=== PATIENT | male | born 1950 | race African-American/Black ===

== ENCOUNTER 2016-11-15 09:36 | Inpatient (IN) ==
[2016-11-15 11:10] LABS: URINE CULTURE NEEDED? NO; URINE MICRO REVIEW NEEDED? NO; URINE SOURCE CLEAN CATCH
[2016-11-15 11:15] LABS: BILIRUBIN URINE NEGATIVE (NEGATIVE); BLOOD URINE SMALL (NEGATIVE); COLOR YELLOW; GLUCOSE URINE NEGATIVE (NEGATIVE); LEUKOCYTES URINE NEGATIVE (NEGATIVE); NITRITE URINE NEGATIVE (NEGATIVE); PH URINE 7.5; PROTEIN URINE TRACE mg/dL (NEGATIVE); SP GRAVITY URINE 1.009; TURBIDITY URINE CLEAR (CLEAR); UR EPITHELIAL CELLS <10 /HPF (<10); URINE BACTERIA NEGATIVE /HPF; URINE RBC <10 /HPF (<10); URINE WBC <10 /HPF (<10); UROBILINOGEN URINE 2 mg/dL (NORMAL)
[2016-11-15 12:05] LABS: BASO% 0.9 % (0.0-0.8); EOS# 0.14 X1000 (0.0-0.7); HEMATOCRIT 31.8 % (42.0-52.0); HEMOGLOBIN 11.4 g/dL (14.0-18.0); LYMPH# 1.02 X1000 (1.2-3.4); MANUAL DIFF NEEDED? NO; MCH 31.6 PG (27-31); MCHC 35.8 g/dL (33-37); MCV 88.1 FL (81-99); MONO# 0.71 X1000 (0.11-0.59); MONO% 15.3 % (1.7-9.3); NEUT% 58.8 % (42.2-75.2); PLT 41 X1000 (130-400); RBC 3.61 XMIL (4.7-6.1)
[2016-11-15 12:10] LABS: INR 1.55; PROTIME 16.7 Seconds (9.2-11.7); PTT 32.5 Seconds (22.0-36.0)
[2016-11-15 12:19] LABS: AGAP 12; ALBUMIN 2.3 g/dL (3.5-5.0); ALKALINE PHOSPHATASE 217 U/L (32-122); BUN 9 mg/dL (8-22); CALCIUM 8.3 mg/dL (8.8-10.2); CHLORIDE 105 mmol/L (98-107); COSMO 277; GOT 57 U/L (10-34); GPT 33 U/L (10-44); POTASSIUM 4.1 mmol/L (3.5-5.1); SODIUM 138 mmol/L (136-145); TCO2 21 mmol/L (25-35); TOTAL PROTEIN 6.9 g/dL (6.3-8.3)
[2016-11-15] MEDS ORDERED: LASIX IV ONE (13:12)
[2016-11-15] MEDS ORDERED: NITROGLYCERIN ONE (13:59)
[2016-11-15] MEDS: NITROGLYCERIN TOP SCH ×2 (14:00→20:21)
[2016-11-15] MEDS ORDERED: ZOFRAN IV PRN (17:21)
[2016-11-15] MEDS ORDERED: LACTULOSE PO SCH (18:00)
[2016-11-15] MEDS ORDERED: APRESOLINE IV PRN (18:30)
[2016-11-15] MEDS ORDERED: VITAMIN K SUBQ ONE (18:30)
[2016-11-15] MEDS: LACTULOSE PO SCH (20:19)
[2016-11-15] MEDS: XIFAXAN PO SCH (20:21)
[2016-11-16] MEDS: NITROGLYCERIN TOP SCH ×2 (01:52→08:36)
[2016-11-16 05:13] LABS: HEMATOCRIT 28.1 % (42.0-52.0); HEMOGLOBIN 9.8 g/dL (14.0-18.0); MCH 31.3 PG (27-31); MCHC 34.9 g/dL (33-37); MCV 89.8 FL (81-99); PLT 42 X1000 (130-400); RBC 3.13 XMIL (4.7-6.1)
[2016-11-16 05:31] LABS: AGAP 11; ALBUMIN 2.1 g/dL (3.5-5.0); ALKALINE PHOSPHATASE 125 U/L (32-122); BUN 10 mg/dL (8-22); CALCIUM 9.4 mg/dL (8.8-10.2); CHLORIDE 106 mmol/L (98-107); COSMO 278; GOT 54 U/L (10-34); GPT 30 U/L (10-44); POTASSIUM 4.2 mmol/L (3.5-5.1); SODIUM 140 mmol/L (136-145); TCO2 23 mmol/L (25-35); TOTAL BILIRUBIN 6.01 mg/dL (0.20-1.00); TOTAL PROTEIN 6.1 g/dL (6.3-8.3)
[2016-11-16] MEDS ORDERED: NORCO-5 PO ONE (05:44)
[2016-11-16] MEDS: LACTULOSE PO SCH ×3 (06:11→21:36)
[2016-11-16] MEDS: SODIUM CHLORIDE 0.9% INJ SCH ×2 (08:36→21:37)
[2016-11-16] MEDS: PROTONIX IV SCH ×2 (08:36→21:37)
[2016-11-16] MEDS: XIFAXAN PO SCH ×2 (08:37→21:36)
[2016-11-16] MEDS: LASIX PO SCH (08:37)
[2016-11-16] MEDS: CENTRUM SILVER PO SCH (08:37)
[2016-11-16] MEDS: ALDACTONE PO SCH (08:37)
[2016-11-16] MEDS: ICAR-C PO SCH ×2 (08:37→21:36)
[2016-11-16] MEDS: VICON-C PO SCH (08:37)
[2016-11-16] MEDS ORDERED: IMDUR PO SCH (09:00)
[2016-11-16] MEDS ORDERED: IMDUR PO ONE (13:21)
[2016-11-16] MEDS ORDERED: VALIUM IV ONE (21:49)
[2016-11-17] MEDS ORDERED: NORCO-7.5 PO ONE (03:15)
[2016-11-17 06:54] LABS: AGAP 14; ALBUMIN 2.1 g/dL (3.5-5.0); ALKALINE PHOSPHATASE 116 U/L (32-122); BUN 15 mg/dL (8-22); CALCIUM 9.2 mg/dL (8.8-10.2); CHLORIDE 104 mmol/L (98-107); COSMO 282; GOT 52 U/L (10-34); GPT 32 U/L (10-44); POTASSIUM 4.3 mmol/L (3.5-5.1); SODIUM 139 mmol/L (136-145); TCO2 21 mmol/L (25-35); TOTAL BILIRUBIN 7.23 mg/dL (0.20-1.00); TOTAL PROTEIN 6.1 g/dL (6.3-8.3)
[2016-11-17 07:09] LABS: HEMATOCRIT 27.4 % (42.0-52.0); HEMOGLOBIN 9.5 g/dL (14.0-18.0); MCH 31.7 PG (27-31); MCHC 34.7 g/dL (33-37); MCV 91.3 FL (81-99); PLT 44 X1000 (130-400)
[2016-11-17] MEDS: SODIUM CHLORIDE 0.9% INJ SCH ×2 (07:41→18:47)
[2016-11-17] MEDS: PROTONIX IV SCH ×2 (07:41→18:47)
[2016-11-17] MEDS: LACTULOSE PO SCH ×3 (08:24→20:45)
[2016-11-17] MEDS: CENTRUM SILVER PO SCH (08:25)
[2016-11-17] MEDS: IMDUR PO SCH (08:25)
[2016-11-17] MEDS: ALDACTONE PO SCH (08:25)
[2016-11-17] MEDS: XIFAXAN PO SCH ×2 (08:25→20:45)
[2016-11-17] MEDS: LASIX PO SCH (08:26)
[2016-11-17] MEDS: ICAR-C PO SCH ×2 (08:38→20:45)
[2016-11-17] MEDS: VICON-C PO SCH (08:41)
[2016-11-18] MEDS: LACTULOSE PO SCH ×2 (06:11→14:27)
[2016-11-18] MEDS: PROTONIX IV SCH (06:16)
[2016-11-18 07:08] LABS: AGAP 10; ALBUMIN 2.1 g/dL (3.5-5.0); ALKALINE PHOSPHATASE 115 U/L (32-122); BUN 19 mg/dL (8-22); CALCIUM 9.4 mg/dL (8.8-10.2); CHLORIDE 103 mmol/L (98-107); COSMO 278; GOT 45 U/L (10-34); GPT 30 U/L (10-44); POTASSIUM 4.4 mmol/L (3.5-5.1); SODIUM 138 mmol/L (136-145); TCO2 25 mmol/L (25-35); TOTAL BILIRUBIN 7.44 mg/dL (0.20-1.00); TOTAL PROTEIN 6.1 g/dL (6.3-8.3)
[2016-11-18 07:09] LABS: BASO% 0.2 % (0.0-0.8); EOS# 0.29 X1000 (0.0-0.7); EOS% 2.4 % (0.0-10.0); HEMATOCRIT 26.9 % (42.0-52.0); HEMOGLOBIN 9.4 g/dL (14.0-18.0); IMM GRAN# 0.08 X1000 (0.0-0.04); IMM GRAN% 0.7 % (0.0-0.5); LYMPH# 1.41 X1000 (1.2-3.4); LYMPH% 11.7 % (20.5-51.1); MANUAL DIFF NEEDED? YES; MCHC 34.9 g/dL (33-37); MCV 88.8 FL (81-99); MONO# 2.63 X1000 (0.11-0.59); MONO% 21.8 % (1.7-9.3); NEUT% 63.2 % (42.2-75.2); PLT 50 X1000 (130-400); RBC 3.03 XMIL (4.7-6.1)
[2016-11-18 09:17] LABS: BANDS 2 % (0-1); EOS 4 % (1-10); HYPOCHROM 1+; LYMPHS 10 % (21-51); MONO 8 % (1-9)
[2016-11-18] MEDS: LASIX PO SCH (10:19)
[2016-11-18] MEDS: ALDACTONE PO SCH (10:19)
[2016-11-18] MEDS: VICON-C PO SCH (10:19)
[2016-11-18] MEDS: ICAR-C PO SCH (10:19)
[2016-11-18] MEDS: CENTRUM SILVER PO SCH (10:20)
[2016-11-18] MEDS: XIFAXAN PO SCH (10:20)
[2016-11-18] MEDS: IMDUR PO SCH (10:20)
[2016-11-18] MEDS ORDERED: BENADRYL LIQUID PO PRN (10:54)
[2016-11-18 12:57] VITALS: BP 172/81
== END 2016-11-18 14:40 | disposition home or self-care (01) ==
LOC: ED 09:36 → SUATTDRO 18:16 → 3S 18:16 → 4N 11-16 20:24
PROVIDERS: ATTEND Internal Medicine

== ENCOUNTER 2016-11-30 03:33 | Inpatient (IN) ==
--- NOTE | 2016-11-30 04:01 | PROVIDER DOCUMENTATION ---
HPI-General Adult - General Chief Complaint: Extremity Pain Stated Complaint: KNEE PAIN Time Seen by Provider: 11/30/16 03:49 Source: patient, other (friend) Allergies/Adverse Reactions: Patient Allergies Allergy/AdvReac Type Severity Reaction Status Date / Time influenza virus vaccine, Allergy RASH Verified 11/30/16 05:02 specific [Influenza Virus Vacc,Specific] Home Medications: Home Medication List Medication Instructions Recorded Confirmed Last Taken Type Allopurinol [Zyloprim] 100 mg PO QHS 01/22/12 11/30/16 11/29/16 History Isosorbide Mononitrate E.r. [Imdur] 30 mg PO DAILY #30 tablet 08/06/14 11/30/16 11/29/16 Rx Omeprazole [Prilosec] 20 mg PO DAILY@0700 12/28/14 11/30/16 11/29/16 History Spironolactone 100 mg PO DAILY 12/28/14 11/30/16 11/29/16 History Rifaximin [Xifaxan] 550 mg PO BID #60 tablet 02/18/15 11/30/16 11/29/16 Rx Vitamin B Complex [B Complex] 1 each PO DAILY #30 capsule 05/15/15 11/30/16 Rx Cyclobenzaprine [Flexeril] 10 mg PO TID PRN #30 tablet 09/13/16 11/30/16 Unknown Rx Meclizine HCl [Antivert] 25 mg PO BID PRN 11/15/16 11/30/16 Unknown History Furosemide [Lasix] 40 mg PO DAILY tablet 11/18/16 11/30/16 11/29/16 Rx Iron Carbonyl/Ascorbic Acid 1 each PO BID tablet 11/18/16 11/30/16 11/29/16 Rx [Icar-C] Lactulose 45 ml PO 0700,1400,2100 udc 11/18/16 11/30/16 11/29/16 Rx Multivitamins/Minerals [Centrum 1 each PO DAILY tablet 11/18/16 11/30/16 Rx Silver] - History of Present Illness -Gen Adult Nature of Presenting Problems: pt states he woke up this morning with severe left lower leg pain. He has chronic lower leg swelling but it is more swollen than usual. He is also shivering Review of Systems - Adult - REVIEW OF SYSTEMS - ADULT Constitutional: reports: chills. denies: fever Eyes: denies: discharge Ears, Nose, Mouth & Throat: denies: ear pain, sinus problem, throat pain Cardiovascular: denies: chest pain, palpitations Respiratory: denies: cough, shortness of breath Gastrointestinal: denies: abdominal pain, diarrhea, nausea, vomiting Genitourinary: denies: dysuria, flank pain Integumentary: reports: see HPI Neurological: denies: headache/migraines, numbness, paresthesia Psychiatric: reports: no symptoms reported Endocrine: reports: no symptoms reported Hematologic/Lymphatic: reports: no symptoms reported Allergic/Immunologic: reports: no symptoms reported All Other Systems: Reviewed and Negative Past History - Adult - PAST MEDICAL HISTORY-ADULT Review of Records: reports: Old Records Reviewed, Nursing Assessment Review, Medications Reviewed, Social history reviewed & non-contributory. Major Childhood Illnesses: reports: denies history Cardiovascular: reports: CHF, HTN, hyperlipidemia Respiratory: reports: denies history Gastrointestinal: reports: GI bleed (mild in past), liver disease (cirrhosis) Obstetrical/Gynecological: reports: denies history Genitourinary: reports: denies history Musculoskeletal: reports: arthritis (gout) Neurological: reports: denies history Psychiatric: reports: anxiety Endocrine/Immune: reports: denies history Other Conditions: reports: denies history - PRIOR SURGERIES/PROCEDURES Surgical/Procedure History: reports: orthopedic (extremity) (right wrist) - IMMUNIZATION STATUS Childhood Immunizations: See Nurse Assessment Flu Vaccine: See Nurse Assessment - FAMILY HISTORY Family History: reviewed, not pertinent Physical Exam-General - PHYSICAL EXAM-ADULT Initial Vital Signs Reviewed: Yes - CONSTITUTIONAL General Appearance: mild distress, slow to respond - EYES Eyes: PERRL/EOMI. negative: scleral icterus - HEAD, EARS, NOSE, MOUTH & THROAT HENMT: normocephalic/atraumatic - NECK Neck: non-tender, full range of motion, supple, normal inspection - RESPIRATORY Respiratory: chest non-tender, lungs clear, normal breath sounds, no pleuratic chest pain, no respiratory distress, no accessory muscle use - CARDIOVASCULAR Cardiovascular: no murmur, tachycardia. negative: no edema (pt has bilateral edema ov lower legs with right much more so, and it is slightly warmer and moderately tender without obvious erythema) - GASTROINTESTINAL (ABDOMEN) Abdominal Exam: normal bowel sounds, non tender, soft, no organomegaly, no pulsatile mass - MUSCULOSKELETAL Back Exam: normal inspection, no CVA tenderness, no vertebral tenderness Extremity: no calf tenderness. 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 negative: normal mood/affect Progress - PLAN OF CARE/RESULTS Progress/Plan/Lab Results: Vital Signs - 8 hr 11/30/16 03:46 Temperature 98.0 F Pulse Rate 121 H Respiratory Rate 22 Blood Pressure 100/59 O2 Sat by Pulse Oximetry 98 Orders Category Date Time Status CHEST-PORTABLE [RAD] Stat Exams 11/30/16 03:56 Ordered AMMONIA [CHEM] Stat Lab 11/30/16 03:55 Uncollected BLOOD CULTURE [BLDCUL] Stat Lab 11/30/16 03:56 Uncollected BNP [PRO B-NATRIURETIC PEPTIDE] Stat Lab 11/30/16 03:57 Uncollected CBC WITH ELECTRONIC DIFF [HEME] Stat Lab 11/30/16 03:54 Uncollected CMP [COMPREHENSIVE METABOLIC PANEL] [CHEM] Stat Lab 11/30/16 03:54 Uncollected Ddimer [D-DIMER] [CHEM] Stat Lab 11/30/16 03:54 Uncollected LACTATE, PLASMA [CHEM] Stat Lab 11/30/16 03:55 Uncollected MAGNESIUM [CHEM] Stat Lab 11/30/16 03:57 Uncollected PROTIME WITH INR [COAG] Stat Lab 11/30/16 03:56 Uncollected PTT [COAG] Stat Lab 11/30/16 03:56 Uncollected TROPONIN T Stat Lab 11/30/16 03:56 Uncollected EKG [EKG] Stat Ther 11/30/16 03:55 Ordered EKG [EKG] Stat Ther 11/30/16 03:55 Ordered Result Diagrams: 11/30/16 04:08 11/30/16 04:08 - EKG 1 Time of EKG reading by physician:: 04:42 EKG Interpretation (*Must complete 3 of following elements*): Abnormal Rate: 122 Rhythm: acclerated junctional QRS: normal ST Wave: normal - XRAY 1 XRAY Study: Chest Impression: Normal Departure - Departure Date of Disposition Decision: 11/30/16 Time of Disposition Decision: 05:18 DIAGNOSIS: Hyperbilirubinemia, Hyperammonemia, Left leg cellulitis Disposition: ADMITTED INPATIENT 09 Certified Medical Emergency: Emergent Condition: Fair Referrals and Follow-Ups: Gary Spears [Primary Care Provider] - - Critical Care Note This patient required my direct & personal management of CC.: Yes Total Time (mins): 90 Critical Care Statement: This patient required my direct personal management to treat or rule out processes, the absence of which, could potentiallly result in sudden, clinically significant life or limb threatening deterioration. Attestation - Physician/ VEDA Attestation Patient care was provided by Advanced Practice Provider:: No The physician spent face to face time with patient:: Yes Advanced Practice Provider documentation review:: Supervising physician onsite and consulted in the evaluation and care of this patient. The physician did have a face to face encounter with the patient.
[2016-11-30] MEDS ORDERED: NS 1,000 ML IV ONE ×2 (04:40→05:26)
[2016-11-30] MEDS ORDERED: OFIRMEV 1000 MG/ISOTONIC SOLN 1,000 MG/100 ML BOTTLE IV ONE (04:40)
[2016-11-30] MEDS ORDERED: ROCEPHIN 1 GM in NS 50 ML IV ONE (04:40)
[2016-11-30] MEDS ORDERED: VANCOMYCIN 1 GM/NS 1 GM/250 ML IVPB IV ONE (04:40)
[2016-11-30 04:50] LABS: INR 1.43; PROTIME 15.4 Seconds (9.2-11.7); PTT 26.8 Seconds (22.0-36.0)
[2016-11-30 04:52] LABS: BASO% 0.1 % (0.0-0.8); EOS# 0.13 X1000 (0.0-0.7); EOS% 1.5 % (0.0-10.0); HEMATOCRIT 32.6 % (42.0-52.0); HEMOGLOBIN 11.4 g/dL (14.0-18.0); LYMPH# 1.21 X1000 (1.2-3.4); LYMPH% 13.9 % (20.5-51.1); MANUAL DIFF NEEDED? NO; MCH 31.4 PG (27-31); MCV 89.8 FL (81-99); MONO# 0.53 X1000 (0.11-0.59); MONO% 6.1 % (1.7-9.3); NEUT% 78.4 % (42.2-75.2); PLT 58 X1000 (130-400); RBC 3.63 XMIL (4.7-6.1)
[2016-11-30 04:57] LABS: URINE MICRO REVIEW NEEDED? NO; URINE SOURCE CATH
[2016-11-30 05:00] LABS: BILIRUBIN URINE NEGATIVE (NEGATIVE); BLOOD URINE TRACE (NEGATIVE); COLOR YELLOW; GLUCOSE URINE NEGATIVE (NEGATIVE); LEUKOCYTES URINE SMALL (NEGATIVE); NITRITE URINE NEGATIVE (NEGATIVE); PROTEIN URINE TRACE mg/dL (NEGATIVE); SP GRAVITY URINE 1.019; TURBIDITY URINE CLEAR (CLEAR); UROBILINOGEN URINE 4 mg/dL (NORMAL)
[2016-11-30 05:02] LABS: UR EPITHELIAL CELLS <10 /HPF (<10); URINE BACTERIA NEGATIVE /HPF; URINE CULTURE NEEDED? YES; URINE RBC 20-40 /HPF (<10)
[2016-11-30 05:08] LABS: AGAP 19; ALBUMIN 2.4 g/dL (3.5-5.0); ALKALINE PHOSPHATASE 184 U/L (32-122); BUN 13 mg/dL (8-22); CALCIUM 8.9 mg/dL (8.8-10.2); CHLORIDE 100 mmol/L (98-107); COSMO 279; GOT 54 U/L (10-34); GPT 32 U/L (10-44); MAGNESIUM 1.5 mg/dL (1.5-2.7); POTASSIUM 3.9 mmol/L (3.5-5.1); SODIUM 139 mmol/L (136-145); TCO2 20 mmol/L (25-35); TOTAL BILIRUBIN 6.51 mg/dL (0.20-1.00); TOTAL PROTEIN 7.3 g/dL (6.3-8.3)
[2016-11-30] MEDS ORDERED: NS 500 ML IV ONE (05:42)
[2016-11-30] MEDS ORDERED: MAGNESIUM SULFATE 1 GM/D5W 1 GM/100 ML IVPB IV ONE (06:15)
--- NOTE | 2016-11-30 06:56 | EKG Report ---
Test Performed on : 11/30/2016 04:43:20 AM Test Reason : EDEMA Blood Pressure : / mmHG Vent. Rate : 127 BPM Atrial Rate : 067 BPM P-R Int : 000 ms QRS Dur : 084 ms QT Int : 358 ms P-R-T Axes : 000 027 069 degrees QTc Int : 520 ms Accelerated Junctional rhythm. Abnormal ECG When compared with ECG of 15-NOV-2016 09:46, Junctional rhythm. has replaced Sinus rhythm. Vent. rate has increased BY 45 BPM Unconfirmed Result
--- NOTE | 2016-11-30 07:08 | Diag Imaging Result Doc PS360 ---
EXAM: CHEST-PORTABLE HISTORY: leg swelling TECHNIQUE: AP portable at 0415 COMMENT: There is atelectasis in the right middle and lower lobes. The inspiration is suboptimal. The inspiration is actually slightly better than that of 11/15/2016. IMPRESSION: Atelectasis. Electronically signed by Jero Golden 11/30/2016 7:06 AM
--- NOTE | 2016-11-30 07:39 | HISTORY AND PHYSICAL ---
REASON FOR ADMISSION: A 1-day history of left lower extremity pain and swelling. HISTORY OF PRESENT ILLNESS: Mr. Gauri Castillo is a 66-year-old male with a past medical history of cirrhosis, Child's class C, gout, hyperlipidemia, hypertension, reflux disease. He was last admitted here 2 weeks ago for hepatic encephalopathy. He had been doing well up until about late last night when he started noticing that his left lower extremity was starting to swell and developed simultaneous pain. I am unable to get any meaningful history from him because he is extremely lethargic at this point in time but the little that I was able to get, he tells me he did not hurt his foot nor did he ingest seafood. His friend and sister are at bedside. Both of them concur with him. As a matter of fact, this afternoon, he was up walking around without any limitations. They believe that this happened suddenly overnight. The patient admits to having fever and chills. No diarrhea. No abdominal pain. No genitourinary complaints per the patient. No cardiorespiratory complaints. REVIEW OF SYSTEMS: Limited because the patient is extremely lethargic and sleepy. I had on multiple occasions tried to wake him up. The history obtained was very spotty at best. ALLERGIES: Flu vaccine. MEDICATIONS: He is on allopurinol 100 mg at bedtime, Flexeril 100 mg 3 times a day, Lasix 40 mg daily, Icar-C 1 b.i.d., Imdur 30 mg a day, lactulose 45 mL 4 times a day, meclizine 25 mg b.i.d. p.r.n., multivitamin tablets once a day, omeprazole 20 mg daily, Xifaxan 550 mg b.i.d., spironolactone 100 mg daily, vitamin B complex one daily. PRIMARY CARE PHYSICIAN: Dr. Gary Spears at the [facility] in [place], [place]. SOCIAL HISTORY: He has a 50 pack-year history of smoking per old records and 40 years of alcohol, quit 3 years ago. FAMILY HISTORY: Notable for strokes and colon cancer in 1st degree relatives. SURGICAL HISTORY: Could not be obtained nor is it documented in the chart. LABORATORY WORK: White count 8000, hemoglobin and hematocrit 11 and 32, platelets 58,000 with 78% neutrophils. BUN 13, creatinine 1.3, anion gap 19, bicarb 20, glucose 131, magnesium 1.8. Bilirubin 6.5, AST 54, ALT 32, alkaline phosphatase 184, ammonia 342, lactate 6.4, albumin 2.4. ProBNP is 17. PT 15, INR 1.4, D-dimer 8. Urinalysis shows trace protein, trace ketones, small leukocytes, 10-20 WBCs, 20-40 RBCs, and no bacteria noted. Chest x-ray somewhat rotated but shows slightly increased vascular markings. PHYSICAL EXAMINATION: GENERAL: Elderly, man who appears older than stated age. VITAL SIGNS: Heart rate 102, respirations 20, blood pressure 176/85, 95% on room air. HEENT: Head is normocephalic, atraumatic. Eyes: GARETH, EOMI. He is icteric and pale. ENT and oropharyngeal exam is grossly normal. Some cyanosis noted. CHEST: Clear to auscultation with good air entry in both lung goldstein. CARDIOVASCULAR: First and second heart sounds heard. No gallops. A 3/6 ejection systolic murmur heard. Rhythm is regular. ABDOMEN: Distended, soft. No focal areas of tenderness. Bowel sounds are hypoactive. No mass or organomegaly appreciated. RECTAL: Examination is deferred. EXTREMITIES: Patient has 2+ pitting edema on the right leg and 3+ on the left side. The skin there is shiny and hot. I cannot appreciate any erythema, although accounting for the degree of the patient's melanin, it is possible that there is an area of hyperpigmentation noted on the patient's leg which could represent erythema. Pulses are 1+, slightly diminished. He has good capillary refill. The pulses distally are regular and symmetrical. No clubbing, no peripheral cyanosis. NEUROLOGICAL: The patient is oriented only to person and place. No focal deficits appreciated. Patient could not raise his arms to see if there was any asterixis. SKIN: See above. MUSCULOSKELETAL: Grossly normal. ASSESSMENT: 1. Sepsis secondary to left lower extremity cellulitis. 2. Probable early onset encephalopathy. 3. Gout. 4. Hypertension. 5. Anemia of chronic inflammation. 6. Acute kidney injury. PLAN: At this time, the patient will be hydrated according to our sepsis protocol and has already been given vancomycin and Rocephin. Since patient has not been exposed to seafood nor to the best of our knowledge, has he wandered in any brackish or water which may contain vibrio vulnificus which is a pathogen, this subgroup of patients are very prone to being affected with cellulitis. We will treat this patient pretty much as if he has a typical MRSA strep cellulitis. Also, he appears to be slightly encephalopathic. This will also need to be treated. We will continue with Xifaxan and lactulose. His ammonia level is elevated but there is no direct correlation with degree of encephalopathy and pneumonia. Also, we should not be blind-sided by the fact that this patient may still have SBP. If he does not get better despite our current regimen, a diagnostic paracentesis may need to be entertained. A venous Doppler study will be done to rule out the possibility of coexisting DVT, this despite his INR being 1.5. The patients with suppressed INR still prone to having DVTs since the liver is the organ responsible for manufacturing protein C, S, and antithrombin 3. The patient could be deficient in this. Repeat lactate in 2 hours. The patient will be admitted to the ICU. TOTAL CRITICAL TIME: Will be estimated to be 42 minutes. cc: Gary Gonzalez MD
[2016-11-30] MEDS ORDERED: ZOFRAN IV PRN (08:13)
[2016-11-30] MEDS ORDERED: TYLENOL PO PRN (08:13)
--- NOTE | 2016-11-30 08:37 | Diag Imaging Result Doc PS360 ---
ABDOMEN FLAT/UPRIGHT - 11/30/2016 INDICATION: cirrhosis sepsis TECHNIQUE: Two views COMPARISON: 03/20/2012 FINDINGS: Portable technique was used in detail is very poor. There is probably some constipation at the hepatic and splenic flexures of the colon. No small bowel obstruction. No definite free air. IMPRESSION: Mild constipation. Electronically signed by Js Ybarra 11/30/2016 8:34 AM
[2016-11-30] MEDS: PATIENT'S OWN MED PO SCH (09:00)
[2016-11-30 11:07] LABS: BASO% 0.1 % (0.0-0.8); EOS# 0.03 X1000 (0.0-0.7); EOS% 0.2 % (0.0-10.0); HEMATOCRIT 29.3 % (42.0-52.0); HEMOGLOBIN 10.2 g/dL (14.0-18.0); IMM GRAN# 0.08 X1000 (0.0-0.04); IMM GRAN% 0.4 % (0.0-0.5); LYMPH% 3.4 % (20.5-51.1); MANUAL DIFF NEEDED? NO; MCH 31.6 PG (27-31); MCHC 34.8 g/dL (33-37); MCV 90.7 FL (81-99); MONO% 8.4 % (1.7-9.3); NEUT% 87.5 % (42.2-75.2); PLT 43 X1000 (130-400); RBC 3.23 XMIL (4.7-6.1)
[2016-11-30 11:36] LABS: AGAP 14; ALKALINE PHOSPHATASE 140 U/L (32-122); BUN 15 mg/dL (8-22); CALCIUM 8.3 mg/dL (8.8-10.2); CHLORIDE 105 mmol/L (98-107); COSMO 278; GOT 50 U/L (10-34); GPT 27 U/L (10-44); POTASSIUM 3.6 mmol/L (3.5-5.1); SODIUM 138 mmol/L (136-145); TCO2 19 mmol/L (25-35); TOTAL BILIRUBIN 5.75 mg/dL (0.20-1.00); TOTAL PROTEIN 6.1 g/dL (6.3-8.3)
[2016-11-30 11:41] LABS: INR 1.54; PROTIME 16.6 Seconds (9.2-11.7); PTT 31.8 Seconds (22.0-36.0)
[2016-11-30 11:43] LABS: CK PROFILE 471 U/L (24-204)
[2016-11-30] MEDS: ICAR-C PO SCH ×2 (12:00→20:08)
[2016-11-30] MEDS: NS 1,000 ML IV SCH ×3 (12:00→23:25)
[2016-11-30] MEDS: XIFAXAN PO SCH ×2 (12:00→20:08)
[2016-11-30] MEDS: CENTRUM SILVER PO SCH (12:00)
[2016-11-30] MEDS: IMDUR PO SCH (12:00)
--- NOTE | 2016-11-30 12:03 | SEPSIS: TISSUE PERFUSION ASSMT ---
Sepsis: Tissue Perfusion Assmt - Physical Exam Assessment Date: 11/30/16 Time Assessment Initialized: 12:00 Vital Signs: Last Vital Signs Temp 100.7 F H 11/30/16 06:14 Pulse 86 11/30/16 11:01 Resp 16 11/30/16 11:01 BP 148/70 11/30/16 11:01 Pulse Ox 97 11/30/16 11:01 Lung Sounds:: lungs clear Heart Sounds:: Regular Capillary Refill Time: Less Than 2 Seconds Peripheral Pulse Evaluation:: radial (R): 2+, radial (L): 2+, dorsalis-pedis (R) : 1+, dorsalis-pedis (L): 1+ Skin Exam:: pink - Impression Impression:: Tissue Perfusion Adequate - Plan Plan:: See Orders
[2016-11-30] MEDS: LACTULOSE PO SCH ×3 (12:13→20:07)
[2016-11-30] MEDS ORDERED: NS 1,000 ML ONE (12:15)
[2016-11-30] MEDS: OXY IR PO PRN ×2 (15:46→20:58)
[2016-11-30] MEDS: LOVENOX SUBQ SCH (18:12)
[2016-11-30] MEDS: KEFZOL 2 GM/D5W 2 GM/50 ML IVPB IV SCH (18:30)
[2016-11-30] MEDS: LOTRIMIN 1% CREAM TOP SCH (20:08)
--- NOTE | 2016-11-30 20:30 | CONSULTATION ---
DATE OF CONSULTATION: 11/30/2016 CONCLUSION: The patient has cellulitis of both legs. It is more prominent in the left leg. He is predisposed to this by having chronic edema in his legs, which most likely is due to the fact that he has cirrhosis of the liver. In addition, he has tinea pedis, which may serve as a portal for bacteria to invade from between his toes into his legs and cause cellulitis. RECOMMENDATIONS: I have requested that the nurse elevate the foot of the bed as much as possible. I have also ordered to place the patient on IV Ancef and to put Lotrimin cream between the toes of both feet every 12 hours. Long-term goals would be for the patient to lose weight and stop drinking. PRESENT ILLNESS: The patient has been having leg edema. It has gotten worse in the past week or 2 and has been associated with fever. He does not remember injuring either leg. His laboratory studies thus far show a CBC with a white count of 17,900, hemoglobin 10.2, and platelet count 43,000. Creatinine is 1.3. GFR is greater than 60. Bilirubin is 5.75. Pneumonias 342. Urinalysis showed white cells, but no bacteria. Chest x-ray has atelectatic changes. X-ray of the abdomen shows constipation. Blood and urine cultures are pending. PHYSICAL EXAMINATION: Eyes and ears: Patient has decreased hearing and vision. Neck: No stiffness. Respiratory: No cough or shortness of breath. GI: No nausea, vomiting, or diarrhea. : No dysuria or flank pain. Bones, joints, muscles: The patient has swelling in both legs and there is some erythema as well in the left leg. Endocrine: Patient denies having diabetes or thyroid disease. Neurologic: No seizures. No paresis. Integument : No rashes. PREVIOUS HOSPITALIZATIONS AND OPERATIONS: He has been admitted before for liver failure due to cirrhosis of the liver from alcoholism. He has also been admitted with leg edema. MEDICAL DISEASES: Positive for cirrhosis of the liver and hypertension. INFECTIOUS DISEASE HISTORY: Negative for pneumonia and UTI. FAMILY HISTORY: Positive for gout, hypertension, myocardial infarction and cancer. SOCIAL HISTORY: [place] He is [place]. He lives alone. He does not have any pets. He does not smoke cigarettes or abuse drugs. He is a heavy alcohol consumer. ALLERGIES: Influenza virus vaccine. HOME MEDICATIONS: Vitamin B, spironolactone, rifaximin, omeprazole, multivitamin, Antivert, lactulose, Isordil, furosemide, Flexeril and allopurinol. PHYSICAL EXAMINATION: Vital Signs: Temperature is 98 degrees, pulse 89, respirations 24, blood pressure 133/78. Patient is 5 feet 9 inches tall, weighs 198 pounds. General: This is an ill- appearing, elderly male. He is in no acute distress. Head, eyes, ears, nose, and throat: He has decreased hearing and vision. He generally had good oral hygiene. Neck: No meningismus. Thorax: No increased AP diameter. Lungs: Clear to auscultation. Cardiovascular: Regular heart rate. Extremities: Legs, bilateral edema, left leg greater than the right leg. The left leg is more edematous than the right leg. The left leg also is erythematous. Between the toes of his feet, the patient has scaling skin. Neurologic: Patient is awake. He can move his extremities. There is no tremor. His sensation is intact to touch. His memory as regarding his medical history is decreased. Thank you for the consult. cc: Ramses Castillo MD MTDD
[2016-12-01] MEDS: KEFZOL 2 GM/D5W 2 GM/50 ML IVPB IV SCH ×2 (01:06→10:07)
[2016-12-01 05:57] LABS: INR 1.74; PROTIME 18.9 Seconds (9.2-11.7)
[2016-12-01 06:12] LABS: AGAP 12; ALKALINE PHOSPHATASE 97 U/L (32-122); BUN 24 mg/dL (8-22); CALCIUM 7.9 mg/dL (8.8-10.2); CHLORIDE 106 mmol/L (98-107); COSMO 282; GOT 56 U/L (10-34); GPT 28 U/L (10-44); POTASSIUM 3.8 mmol/L (3.5-5.1); SODIUM 139 mmol/L (136-145); TCO2 21 mmol/L (25-35); TOTAL BILIRUBIN 9.15 mg/dL (0.20-1.00); TOTAL PROTEIN 5.9 g/dL (6.3-8.3)
[2016-12-01] MEDS: LACTULOSE PO SCH ×4 (06:22→20:04)
[2016-12-01 07:11] LABS: BASO% 0.2 % (0.0-0.8); EOS# 0.27 X1000 (0.0-0.7); EOS% 1.5 % (0.0-10.0); HEMATOCRIT 27.7 % (42.0-52.0); HEMOGLOBIN 9.7 g/dL (14.0-18.0); IMM GRAN# 0.06 X1000 (0.0-0.04); IMM GRAN% 0.3 % (0.0-0.5); LYMPH# 1.41 X1000 (1.2-3.4); LYMPH% 7.9 % (20.5-51.1); MANUAL DIFF NEEDED? YES; MCH 31.4 PG (27-31); MCV 89.6 FL (81-99); MONO# 2.43 X1000 (0.11-0.59); MONO% 13.7 % (1.7-9.3); NEUT% 76.4 % (42.2-75.2); PLT 40 X1000 (130-400); RBC 3.09 XMIL (4.7-6.1)
[2016-12-01 07:37] LABS: BANDS 6 % (0-1); HYPOCHROM 1+; LYMPHS 6 % (21-51); MONO 2 % (1-9)
--- NOTE | 2016-12-01 07:40 | Diag Imaging Result Doc PS360 ---
CHEST-1 VIEW - 12/01/2016 INDICATION: cirrhosis sepsis TECHNIQUE: COMPARISON: 11/30/2016 FINDINGS: Stable low lung volumes. Stable trace right basilar atelectasis. No focal infiltrates, pneumothorax, or pleural effusion. IMPRESSION: No change from prior. Electronically signed by Js Ybarra 12/01/2016 7:37 AM
[2016-12-01] MEDS: NS 1,000 ML IV SCH ×3 (08:10→16:35)
[2016-12-01] MEDS: ICAR-C PO SCH ×3 (08:10→20:03)
[2016-12-01] MEDS: XIFAXAN PO SCH ×3 (08:11→20:04)
[2016-12-01] MEDS: IMDUR PO SCH (08:11)
[2016-12-01] MEDS: LOTRIMIN 1% CREAM TOP SCH ×2 (08:11→22:00)
[2016-12-01] MEDS: LASIX PO SCH (08:11)
[2016-12-01] MEDS: ALDACTONE PO SCH (08:11)
[2016-12-01] MEDS: CENTRUM SILVER PO SCH (08:11)
[2016-12-01] MEDS: PATIENT'S OWN MED PO SCH (08:12)
--- NOTE | 2016-12-01 08:22 | PROGRESS NOTE ---
DATE: 12/01/2016 SUBJECTIVE: The patient reports feeling fine. They think that he is more awake and alert compared with yesterday. No fever or chills reported. OBJECTIVE: Vital Signs: Temperature 97.3 degrees, heart rate 90, respiratory rate 19, blood pressure 160/78, O2 saturation 98% on room air. General: This is a chronically ill-looking, 66- year-old, male, lying in bed in no acute distress. HEENT: Head is normocephalic, atraumatic. Anicteric sclerae. Pale conjunctivae. Mucous membranes moist. Neck: Supple. No JVD noted. No carotid bruits. No lymphadenopathy. No thyromegaly. Cardiovascular: S1, S2 heard. No murmurs, gallops, or rubs. Regular rate and rhythm. There is 3/6 ejection systolic murmur heard. Respiratory: Clear bilaterally to auscultation. No work of breathing or use of accessory muscles. Abdomen: Soft, nondistended, nontender to palpation. No signs of peritoneal irritation. Extremities: There is 2+ pitting edema in the right leg, and 3+ on the left side. Both are still warmer with mild erythema noted. There are also signs of chronic venous insufficiency. As per patient, he reports that definitely is more swollen and more hot. Neurological: The patient is definitely more oriented and awake. Moves 4 extremities. LABORATORY DATA: White cell count 17.75, hemoglobin 9.7, hematocrit 27.7, platelets 40,000. BMP shows creatinine 1.3. Total bilirubin 9.5, albumin 2.0. ASSESSMENT AND PLAN: 1. Bilateral lower extremity cellulitis. The white cell count is still high. Dr. Castillo from Infectious Disease was consulted. He has placed this patient on Ancef. At this point, we are going to follow his recommendations. Blood pressure is okay. The patient is on room air. We are going to continue with the same management. 2. Hepatic encephalopathy. The patient, at admission, was very confused. Apparently, as per family, he was doing like this for at least the last 4 to 6 days. The patient has ammonia check at admission; it was 342; today, it is 88. The patient has been started on rifaximin and lactulose. Clinically, he is doing much better. Will continue with the same management. 3. Thrombocytopenia. Of course, related to alcoholic liver disease. At this time, there are no signs of bleeding. We are going to continue checking CBC daily. 4. Hypertension. Blood pressures so far is well controlled. The systolic blood pressure is between 140s and 160s, just one reading. Will continue with the same management right now. 5. Anemia of chronic disease. The hemoglobin is 9.7. This is stable. Will continue checking CBC daily. 6. Acute kidney injury. Creatinine is 1.3, which is unchanged from yesterday. Glomerular filtration rate is greater than 60. Will continue monitoring renal function. 7. Alcoholic liver disease. On this patient, we know that he has advanced liver disease with Child-Grossman score of 12. He had a 1-year mortality of 55%. He is currently receiving Lasix and spironolactone. At this point, will continue with the same management. cc: Joel Garcia MD
[2016-12-01] MEDS: OXY IR PO PRN ×2 (11:04→18:20)
--- NOTE | 2016-12-01 14:24 | Extremity Venous Study ---
PROCEDURE NAME: Venous U/S Left Leg - 11/30/2016 LEFT LOWER EXTREMITY VENOUS DUPLEX STUDY: REFERRING PHYSICIAN: Dr. Rader. READING PHYSICIAN: Gilbert Padgett MD. SEWING TECHNIQUES DEMONSTRATOR: Win. INDICATION: Left leg swelling. FINDINGS: The deep and superficial veins of the left lower extremity were imaged throughout their course. They are compressible, patent and without thrombus. INTERPRETATION: No evidence of deep or superficial venous thrombosis in the left lower extremity. cc: MD Amelia Landers MD
[2016-12-01] MEDS: LOVENOX SUBQ SCH (16:29)
--- NOTE | 2016-12-01 18:18 | PROGRESS NOTE ---
DATE: 12/01/2016 PRESENT ILLNESS: The patient has an Enterobacter bacteremia and cellulitis of both legs with it being more prominent in the left leg. The patient also has tinea pedis. MEDICATIONS: I have switched the patient to Levaquin 500 mg p.o. daily. PHYSICAL EXAMINATION: Vital Signs: Temperature is 98.4 degrees, pulse 96, respirations 20, blood pressure 158/84. General: This is a somewhat ill-appearing, elderly male. He is in no acute distress. Lungs: Clear to auscultation. Cardiovascular: Regular heart rate. Abdomen: Soft and nontender. The patient's said also that his abdomen was not as swollen as it usually is. LAB AND X-RAY: Blood cultures are growing Enterobacter. Doppler study of the legs for thrombi was negative. Creatinine is 1.3. The GFR is greater than 60. Chest x-ray shows no infiltrates. Ammonia level is 88. Urine culture is negative. ASSESSMENT AND PLAN: Patient has cellulitis of the legs. He also has an Enterobacter bacteremia. Since the patient does not have a urinary tract infection or pneumonia and does not appear to have spontaneous bacterial peritonitis, I am left with that the patient's Enterobacter bacteremia came from his leg cellulitis. My plan is to treat with Levaquin for 2 weeks. Two days from now I am going to repeat the patient's blood cultures. I have also written as an order to keep the foot of the bed elevated with the manual gatch always and also for the patient to elevate his legs as much as possible. I plan to continue with the patient's micafungin cream to be put between the toes of both legs. COMORBIDITIES: He has cirrhosis of the liver and he is an alcoholic. cc: Ramses Castillo MD
[2016-12-01] MEDS: ZYLOPRIM PO SCH ×2 (19:57→20:04)
[2016-12-01] MEDS: LEVAQUIN PO SCH (19:57)
[2016-12-02] MEDS: OXY IR PO PRN ×2 (03:04→20:30)
[2016-12-02] MEDS: NS 1,000 ML IV SCH ×3 (03:05→16:06)
[2016-12-02] MEDS: LACTULOSE PO SCH ×3 (06:05→20:22)
[2016-12-02 06:15] LABS: BASO% 0.2 % (0.0-0.8); EOS# 0.28 X1000 (0.0-0.7); EOS% 1.9 % (0.0-10.0); HEMATOCRIT 26.3 % (42.0-52.0); HEMOGLOBIN 9.2 g/dL (14.0-18.0); IMM GRAN# 0.07 X1000 (0.0-0.04); IMM GRAN% 0.5 % (0.0-0.5); LYMPH# 1.46 X1000 (1.2-3.4); LYMPH% 9.9 % (20.5-51.1); MANUAL DIFF NEEDED? YES; MCH 31.4 PG (27-31); MCV 89.8 FL (81-99); MONO# 2.86 X1000 (0.11-0.59); MONO% 19.3 % (1.7-9.3); NEUT% 68.2 % (42.2-75.2); PLT 44 X1000 (130-400); RBC 2.93 XMIL (4.7-6.1)
[2016-12-02 06:38] LABS: BANDS 6 % (0-1); EOS 2 % (1-10); LARGE PLATELETS OCCASIONAL; LYMPHS 8 % (21-51); MONO 12 % (1-9)
[2016-12-02 06:39] LABS: AGAP 11; ALKALINE PHOSPHATASE 97 U/L (32-122); BUN 28 mg/dL (8-22); CALCIUM 8.1 mg/dL (8.8-10.2); CHLORIDE 105 mmol/L (98-107); COSMO 279; GOT 51 U/L (10-34); GPT 27 U/L (10-44); POTASSIUM 4.6 mmol/L (3.5-5.1); SODIUM 137 mmol/L (136-145); TCO2 21 mmol/L (25-35); TOTAL BILIRUBIN 8.15 mg/dL (0.20-1.00); TOTAL PROTEIN 5.5 g/dL (6.3-8.3)
[2016-12-02] MEDS: LOTRIMIN 1% CREAM TOP SCH ×2 (10:07→20:23)
[2016-12-02] MEDS: CENTRUM SILVER PO SCH (10:07)
[2016-12-02] MEDS: XIFAXAN PO SCH ×2 (10:07→20:22)
[2016-12-02] MEDS: ICAR-C PO SCH ×2 (10:07→20:22)
[2016-12-02] MEDS: ALDACTONE PO SCH (10:07)
[2016-12-02] MEDS: LASIX PO SCH (10:08)
[2016-12-02] MEDS: PATIENT'S OWN MED PO SCH (10:08)
[2016-12-02] MEDS: IMDUR PO SCH (10:08)
[2016-12-02] MEDS: LOVENOX SUBQ SCH (16:06)
--- NOTE | 2016-12-02 16:18 | PROGRESS NOTE ---
DATE: 12/02/2016 SUBJECTIVE: Patient reports feeling fine. Seems to be awake and alert. OBJECTIVE: Vital Signs: Temperature 98.2 degrees, heart rate 93, respiratory rate 16, blood pressure 163/70, O2 saturation 100% on room air. General examination: This is a chronically ill- looking, 66-year-old, male, lying in bed in no acute distress. HEENT: Head is normocephalic, atraumatic. Neck: Supple. No JVD noted. No carotid bruits. No lymphadenopathy. No thyromegaly. Cardiovascular Exam: S1, S2 heard. No murmurs, gallops, or rubs. Regular rate and rhythm. Respiratory exam: Clear bilaterally to auscultation. No work of breathing or using accessory muscles. Abdomen: Soft, distended. No signs of peritoneal irritation. Extremities: 2+ pitting edema in the right leg and 3+ pitting edema in the left leg, still warm. Signs of chronic venous insufficiency. Neurological exam: Patient is oriented and awake. Moves 4 extremities. LABORATORY DATA: Reviewed. ASSESSMENT AND PLAN: 1. Bilateral lower extremity cellulitis. We will continue with Ancef. The patient is on room air. 2. Hepatic encephalopathy. Clinically patient is better. Ammonia level is 81. We will continue with the same management; in this case, lactulose and rifaximin. 3. 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 We will continue to monitor. No signs of bleeding. 4. Hypertension. Blood pressure is well controlled. 5. Anemia of chronic disease. That condition is stable. We will continue checking complete blood count daily. 6. Acute kidney injury. The renal function is unchanged in comparing with yesterday. Creatinine is 1.3, unchanged from yesterday. We will continue checking complete blood count. 7. Alcohol liver cirrhosis. Aware. cc: Joel Garcia MD MTDD
[2016-12-02] MEDS: LEVAQUIN PO SCH (20:22)
[2016-12-02] MEDS: ZYLOPRIM PO SCH (20:22)
[2016-12-03] MEDS: NS 1,000 ML IV SCH ×4 (00:26→19:35)
[2016-12-03] MEDS: LACTULOSE PO SCH ×5 (06:10→21:25)
[2016-12-03 06:23] LABS: BASO% 0.3 % (0.0-0.8); EOS# 0.22 X1000 (0.0-0.7); EOS% 1.9 % (0.0-10.0); HEMATOCRIT 26.8 % (42.0-52.0); HEMOGLOBIN 9.6 g/dL (14.0-18.0); IMM GRAN# 0.09 X1000 (0.0-0.04); IMM GRAN% 0.8 % (0.0-0.5); LYMPH% 12.3 % (20.5-51.1); MANUAL DIFF NEEDED? YES; MCHC 35.8 g/dL (33-37); MCV 89.3 FL (81-99); MONO# 1.82 X1000 (0.11-0.59); NEUT% 68.7 % (42.2-75.2); PLT 48 X1000 (130-400)
[2016-12-03 06:35] LABS: AGAP 12; ALBUMIN 1.9 g/dL (3.5-5.0); ALKALINE PHOSPHATASE 90 U/L (32-122); BUN 29 mg/dL (8-22); CALCIUM 8.1 mg/dL (8.8-10.2); CHLORIDE 105 mmol/L (98-107); COSMO 277; GOT 55 U/L (10-34); GPT 24 U/L (10-44); POTASSIUM 4.8 mmol/L (3.5-5.1); SODIUM 136 mmol/L (136-145); TCO2 19 mmol/L (25-35); TOTAL PROTEIN 5.7 g/dL (6.3-8.3)
[2016-12-03 08:51] LABS: BANDS 4 % (0-1); HYPOCHROM 2+; LYMPHS 12 % (21-51); MONO 16 % (1-9); TARGET CELLS OCCASIONAL
[2016-12-03] MEDS: CENTRUM SILVER PO SCH (11:24)
[2016-12-03] MEDS: XIFAXAN PO SCH ×3 (11:24→21:25)
[2016-12-03] MEDS: IMDUR PO SCH (11:24)
[2016-12-03] MEDS: ICAR-C PO SCH ×3 (11:24→21:25)
[2016-12-03] MEDS: LASIX PO SCH (11:24)
[2016-12-03] MEDS: ALDACTONE PO SCH (11:24)
[2016-12-03] MEDS: PATIENT'S OWN MED PO SCH (12:55)
[2016-12-03] MEDS: LOTRIMIN 1% CREAM TOP SCH ×3 (12:56→21:26)
--- NOTE | 2016-12-03 13:51 | PROGRESS NOTE ---
DATE: 12/03/2016 SUBJECTIVE: Patient reports feeling fine. Reports less pain in both lower extremities. Also he reports that he was working with physical therapy. OBJECTIVE: Vital Signs: Temperature 97.9 degrees, heart rate 94, respiratory rate 20, blood pressure 162/77, O2 saturation 96% on room air. General examination: This is a chronically ill- looking, 66-year-old male, lying in bed, in no acute distress. HEENT: Head is normocephalic, atraumatic. Icteric sclerae and pale conjunctivae. Neck: Supple. No JVD noted. No carotid bruits. Cardiovascular: S1, S2 heard. No murmurs, gallops, or rubs. Regular rate and rhythm. Respiratory: Clear bilaterally to auscultation. No work of breathing or using accessory muscles. Abdomen: Soft, distended. No signs of peritoneal irritation. Extremities: There is 2+ pitting edema in the right leg and 3+ pitting edema in the left leg. Definitely less painful and warmer. Signs of chronic venous insufficiency. Neurological: Patient is alert and oriented x3. Moves 4 extremities. LABORATORY DATA: Reviewed. ASSESSMENT AND PLAN: 1. Bilateral lower extremity cellulitis. Patient is clinically doing fine. The patient has been started on levofloxacin 1 tablet p.o. daily. White cell count is almost back to normal. We will continue levofloxacin. 2. Urinary tract infection secondary to Enterococcus and bacteremia secondary to Enterobacter. Dr. Castillo from infectious disease is following this patient. Considering blood cultures he has decided to place this patient on Levaquin for 2 weeks and he is going to repeat blood cultures tomorrow. 3. Hepatic encephalopathy. Clinically, this patient is better. Ammonia level has increased to 111 but mental status is exactly the same. The patient is alert and oriented x3. We will continue with the same management. He is receiving lactulose and rifaximin. 4. 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 We will continue to monitor. No signs of bleeding. 5. Hypertension. Blood pressure is well controlled. Will continue the same management. 6. Anemia of chronic disease, stable. Will continue checking CBC daily. 7. Acute kidney injury. The renal function is completely okay, 0.7 today. Will continue with the same management. 8. Alcohol liver cirrhosis. Aware. 9. Physical deconditioning. Physical therapy is working with this patient. cc: Joel Garcia MD
[2016-12-03] MEDS: LOVENOX SUBQ SCH ×2 (15:25→18:36)
[2016-12-03] MEDS: ZYLOPRIM PO SCH ×2 (19:34→21:26)
[2016-12-03] MEDS: LEVAQUIN PO SCH (19:34)
[2016-12-04 05:55] LABS: BASO% 0.3 % (0.0-0.8); EOS# 0.24 X1000 (0.0-0.7); EOS% 2.3 % (0.0-10.0); HEMATOCRIT 24.8 % (42.0-52.0); HEMOGLOBIN 8.9 g/dL (14.0-18.0); IMM GRAN# 0.22 X1000 (0.0-0.04); IMM GRAN% 2.1 % (0.0-0.5); LYMPH# 1.53 X1000 (1.2-3.4); LYMPH% 14.4 % (20.5-51.1); MANUAL DIFF NEEDED? YES; MCH 31.7 PG (27-31); MCHC 35.9 g/dL (33-37); MCV 88.3 FL (81-99); MONO# 3.17 X1000 (0.11-0.59); MONO% 29.8 % (1.7-9.3); NEUT% 51.1 % (42.2-75.2); PLT 51 X1000 (130-400); RBC 2.81 XMIL (4.7-6.1)
[2016-12-04 06:01] LABS: AGAP 8; ALBUMIN 1.8 g/dL (3.5-5.0); ALKALINE PHOSPHATASE 83 U/L (32-122); BUN 26 mg/dL (8-22); CALCIUM 8.5 mg/dL (8.8-10.2); CHLORIDE 104 mmol/L (98-107); COSMO 270; GOT 50 U/L (10-34); GPT 24 U/L (10-44); POTASSIUM 4.4 mmol/L (3.5-5.1); SODIUM 133 mmol/L (136-145); TCO2 21 mmol/L (25-35); TOTAL BILIRUBIN 8.13 mg/dL (0.20-1.00); TOTAL PROTEIN 5.8 g/dL (6.3-8.3)
[2016-12-04] MEDS: NS 1,000 ML IV SCH ×2 (06:31→14:53)
[2016-12-04] MEDS: LACTULOSE PO SCH ×3 (06:32→21:05)
[2016-12-04 06:53] LABS: BANDS 8 % (0-1); EOS 6 % (1-10); HYPOCHROM 1+; LYMPHS 6 % (21-51); MONO 12 % (1-9); NRBC 1 % (0-0); TARGET CELLS OCCASIONAL
--- NOTE | 2016-12-04 07:22 | PROGRESS NOTE ---
DATE: 12/04/2016 SUBJECTIVE: The patient has an Enterobacter bacteremia and cellulitis of both legs, which is more prominent in the left leg. The patient also has tinea pedis, which could be a portal of entry for the patient's cellulitis in his legs. Finally, he has an enterococcal urinary tract infection. However, this is asymptomatic and does not need to be treated. However, Levaquin which the patient is receiving for the Enterobacter infection also covers Enterococcus and therefore, the urinary tract infection will be treated. MEDICATIONS: As mentioned above, the patient is on Levaquin 500 mg daily. OBJECTIVE: Vital Signs: Temperature is 98.3 degrees, pulse 92, respirations 18, blood pressure 149/81. General: This is a somewhat ill-appearing, elderly male. He is in no acute distress. Lungs: Clear to auscultation. Cardiovascular: Heart rate is regular. Abdomen: Soft and nontender. Extremities: Both legs are less swollen and erythematous. The patient is complaining of pain in his knee, and he has a definite effusion in the knee. Neurologic: See. LAB AND X-RAY: Creatinine today is 0.8. GFR is greater than 60. CBC shows a white count of 10,650, hemoglobin 8.9, and platelet count 51,000. Repeat blood cultures have been drawn. The results are pending. ASSESSMENT AND PLAN: The patient has cellulitis of the legs and an Enterobacter bacteremia, which I think originated from his leg. The new finding is that the patient's left knee is swollen and has an effusion, and I am concerned that given the fact that the patient had a bacteremia, that his left knee could be infected. My plan is to continue Levaquin because the patient's white count is coming down, and he is doing better. I have put in a request for Dr. Mcgarry to perform an arthrocentesis of the left knee. I have ordered on the synovial fluid, that Dr. Mcgarry hopefully will obtain today to be sent for body fluid analysis, gram stain, and culture. Also, I plan to continue with Lotrimin cream between the toes of both feet. COMORBIDITIES: Cirrhosis of the liver and alcoholism. cc: Ramses Castillo MD
[2016-12-04] MEDS: ALDACTONE PO SCH (09:47)
[2016-12-04] MEDS: CENTRUM SILVER PO SCH (09:47)
[2016-12-04] MEDS: IMDUR PO SCH (09:47)
[2016-12-04] MEDS: XIFAXAN PO SCH ×2 (09:47→21:05)
[2016-12-04] MEDS: LOTRIMIN 1% CREAM TOP SCH ×2 (09:47→21:06)
[2016-12-04] MEDS: ICAR-C PO SCH ×2 (09:47→21:05)
[2016-12-04] MEDS: LASIX PO SCH (09:47)
[2016-12-04] MEDS: PATIENT'S OWN MED PO SCH (09:48)
--- NOTE | 2016-12-04 11:16 | PROGRESS NOTE ---
DATE: 12/04/2016 SUBJECTIVE: Patient reports feeling okay. Denies any pain in the left knee. Denies any fever or chills. OBJECTIVE: Vital Signs: Temperature 98.2 degrees, heart rate 94, respiratory rate 20, blood pressure 149/74, O2 saturation 96% on room air. General: This is a chronically ill-looking 66- year-old male, lying in bed, in no acute distress. HEENT: Head is normocephalic and atraumatic. Icteric sclerae and pale conjunctivae. Neck: Supple. No JVD noted. No carotid bruits. Cardiovascular: S1, S2 heard. No murmurs, gallops, or rubs. Regular rate and rhythm. Respiratory: Clear bilaterally to auscultation. No work of breathing or using accessory muscles. Abdomen: Soft, distended. No signs of peritoneal irritation. Mild ascites noted. Extremities: 2+ pitting edema in the right leg, 3+ pitting edema in the left leg. There is also swelling noted in the left knee as well. Signs of chronic venous insufficiency in both legs. Neurological: Patient is alert and oriented x3. Moves 4 extremities. LABORATORY DATA: White cell count 10.65, hemoglobin 8.9, hematocrit 24.8, platelets 51,000. The BMP is unremarkable except mild hyponatremia 133. Total bilirubin 8.13. ASSESSMENT AND PLAN: 1. Bilateral lower extremity cellulitis. Patient is doing fine. He has been started on levofloxacin by Dr. Castillo, who is back to normal. White cell count is okay today. 2. Urinary tract infection secondary to enterococcus bacteremia. Dr. Castillo, from infectious disease, as we mentioned before, is following this patient. He placed this patient on Levaquin for 2 weeks. Apparently, there is a swelling in the left knee that is new so he consulted orthopedics have been placed to have a left knee arthrocentesis and get a culture from synovial fluid. to rule out septic arthritis. We will see what those exams shows. In the meantime, we are going to continue with the same management. 3. Hepatic encephalopathy. Patient continues to be fine. Ammonia level is 61 today. Patient's mental status is okay. We will continue with same management. 4. 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 Her condition is stable. No signs of bleeding reported. 5. Hypertension. Blood pressure is under control. We will continue with same management. 6. Anemia of chronic disease, stable. We will continue checking CBC daily. 7. Acute kidney injury. Renal function is back to normal. 8. Alcoholic liver disease, aware. 9. Physical deconditioning. Physical therapy working with this patient. cc: Joel Garcia MD MTDD
[2016-12-04 13:28] LABS: DIFF NEEDED? YES; WBC BF 39 /cumm
[2016-12-04 13:29] LABS: MONOS 40 %; POLYS 60 %
[2016-12-04] MEDS ORDERED: BENADRYL PO ONE (14:33)
--- NOTE | 2016-12-04 15:27 | OPERATIVE NOTE ---
PROCEDURE DATE: PREOPERATIVE DIAGNOSIS: Synovitis and effusion, left knee. POSTOPERATIVE DIAGNOSIS: Synovitis and effusion, left knee. PROCEDURE PERFORMED: Arthrocentesis, left knee. SURGEON: Shyla Mcgarry MD COMPLICATIONS: None. PROCEDURE IN DETAIL: This is a 66-year-old male with possible septic knee. He presents for arthrocentesis of the knee. Risks and benefits were discussed and he was willing to proceed. The anterolateral aspect of the suprapatellar pouch was prepped with Betadine prep. An 18-gauge, 1.5 inch needle was then inserted into the joint space with return of roughly 18 mL of clear, straw- colored fluid. Afterwards, the needle was removed and a Band-Aid placed over the area without any active bleeding. The fluid was sent for pathological review. On gross inspection, it appeared to be completely clear normal joint fluid, without signs of infection or inflammation. cc: Christoph Mcgarry MD
--- NOTE | 2016-12-04 16:32 | CONSULTATION ---
DATE OF CONSULTATION: 12/04/2016 CHIEF COMPLAINT: Synovitis, left knee. HISTORY OF PRESENT ILLNESS: This gentleman was admitted to the hospital for multiple medical issues, including cirrhosis of liver and possible bacteremia. I was asked to see him regarding swelling of the left knee for arthrocentesis. I was consulted by Dr. Castillo for this. At the present time, he is under treatment for cellulitis. He has a significant medical history of cirrhosis of liver from alcoholism. PHYSICAL EXAMINATION: extremities: Examination reveals a 1 to 2+ effusion over the left knee. There is mild tenderness on passive motion. Compartments were soft. There is no open wound. ASSESSMENT: Synovitis, left knee. PLAN: The patient will undergo arthrocentesis for a bacterial culture analysis. Risks and benefits were discussed and he is willing to proceed. cc: Christoph Mcgarry MD
[2016-12-04] MEDS: LOVENOX SUBQ SCH (17:30)
[2016-12-04] MEDS: LEVAQUIN PO SCH (21:05)
[2016-12-04] MEDS: ZYLOPRIM PO SCH (21:05)
[2016-12-05] MEDS: NS 1,000 ML IV SCH ×2 (00:25→08:50)
[2016-12-05 05:54] LABS: BASO% 0.3 % (0.0-0.8); EOS# 0.27 X1000 (0.0-0.7); EOS% 2.5 % (0.0-10.0); HEMATOCRIT 24.2 % (42.0-52.0); HEMOGLOBIN 8.7 g/dL (14.0-18.0); IMM GRAN% 4.6 % (0.0-0.5); LYMPH# 2.03 X1000 (1.2-3.4); LYMPH% 18.5 % (20.5-51.1); MANUAL DIFF NEEDED? YES; MONO# 2.81 X1000 (0.11-0.59); MONO% 25.6 % (1.7-9.3); MPV 12.2 FL (7.4-10.4); NEUT% 48.5 % (42.2-75.2); PLT 64 X1000 (130-400); RBC 2.72 XMIL (4.7-6.1)
[2016-12-05 05:55] LABS: AGAP 8; ALBUMIN 1.7 g/dL (3.5-5.0); ALKALINE PHOSPHATASE 97 U/L (32-122); BUN 24 mg/dL (8-22); CALCIUM 8.2 mg/dL (8.8-10.2); CHLORIDE 107 mmol/L (98-107); COSMO 276; GOT 56 U/L (10-34); GPT 24 U/L (10-44); POTASSIUM 3.9 mmol/L (3.5-5.1); SODIUM 136 mmol/L (136-145); TCO2 21 mmol/L (25-35); TOTAL BILIRUBIN 7.88 mg/dL (0.20-1.00); TOTAL PROTEIN 5.7 g/dL (6.3-8.3)
[2016-12-05] MEDS: LACTULOSE PO SCH (06:12)
[2016-12-05 06:22] LABS: EOS 4 % (1-10); LYMPHS 16 % (21-51); MONO 16 % (1-9); NRBC 1 % (0-0)
[2016-12-05 07:23] VITALS: BP 152/77
--- NOTE | 2016-12-05 08:21 | PROGRESS NOTE ---
DATE: 12/05/2016 PRESENT ILLNESS: The patient has Enterobacter bacteremia and cellulitis of the legs which is more prominent in the left leg. The patient has tinea pedis which could be the portal of entry for the infection in the patient's legs. Yesterday, I thought that the patient may have a septic arthritis. Dr. Mcgarry performed an arthrocentesis and the synovial fluid shows a white count of only 39, and a negative culture and a negative Gram stain. Therefore, I doubt the patient has septic arthritis. The patient does have an enterococcal urinary tract infection. This does not require treatment because it is asymptomatic. However, the Levaquin that I am treating the patient's Enterobacter infection, as it turns out, also covers the enterococcus. MEDICATIONS: The patient is on Levaquin 500 mg daily. This is the 4th day of treatment with Levaquin. PHYSICAL EXAMINATION: Vital Signs: Temperature is 98.7 degrees, pulse is 88, respirations 18, blood pressure 181/72. General: This is a chronically ill-appearing, elderly male who is in no acute distress. Lungs: Clear to auscultation. Cardiovascular: Heart rate is regular. Abdomen: The abdomen is full and enlarged. It is not tender. Extremities: The patient's legs show decreased swelling and decreased erythema. Also, the patient's left knee is less swollen. This is the knee that had an arthrocentesis performed on it yesterday. PLAN: The plan is to continue Levaquin. This is day 4 of treatment with Levaquin. Even though I doubt the patient has septic arthritis, the culture is still pending on it. COMORBIDITIES: Include cirrhosis of the liver and alcoholism. cc: Ramses Castillo MD
[2016-12-05] MEDS: LASIX PO SCH (08:23)
[2016-12-05] MEDS: ICAR-C PO SCH (08:23)
[2016-12-05] MEDS: CENTRUM SILVER PO SCH (08:23)
[2016-12-05] MEDS: XIFAXAN PO SCH (08:23)
[2016-12-05] MEDS: ALDACTONE PO SCH (08:23)
[2016-12-05] MEDS: IMDUR PO SCH (08:23)
--- NOTE | 2016-12-05 08:23 | PROGRESS NOTE ---
DATE: 12/05/2016 ADDENDUM: The patient's laboratory studies show a creatinine of 0.8. GFR greater than 60. [place] [address], hemoglobin 8.7, and platelet count 64,000. Synovial fluid had 39 white cells in it of which 60% were polymorphonuclear. There were no crystals seen. Gram stain of the fluid showed no organisms and the culture of the fluid thus far shows no growth. Add on under physical exam under extremities, the scaling that the patient had between his toes also has cleared. cc: Ramses Castillo MD
[2016-12-05] MEDS: LOTRIMIN 1% CREAM TOP SCH (08:26)
[2016-12-05] MEDS: PATIENT'S OWN MED PO SCH (08:51)
--- NOTE | 2016-12-05 09:57 | PROGRESS NOTE ---
DATE: 12/05/2016 ADDENDUM: The patient is going to be discharged today on Levaquin 500 mg p.o. daily. I plan to see the patient back in the office in 2 weeks. The patient has cellulitis. I doubt that he has septic arthritis. cc: Ramses Castillo MD
--- NOTE | 2016-12-06 23:45 | DISCHARGE SUMMARY ---
ADMISSION DATE: 11/30/2016 DISCHARGE DATE: 12/05/2016 CONSULTATIONS: 1. Ramses Castillo MD with Infectious Disease. 2. Christoph Mcgarry MD with Orthopedics. PERTINENT PROCEDURES: 1. Chest x-ray showed atelectasis. 2. Abdominal x-ray showed some mild constipation. 3. Left leg Doppler study showed no evidence of deep or superficial venous thrombosis. 4. Arthrocentesis of the left knee performed by Dr. Mcgarry. He removed roughly 18 mL of clear straw color fluid. There appeared to be completely clear joint fluid without signs of infection or inflammation. DISCHARGE DIAGNOSES: 1. Bilateral lower extremity cellulitis. The patient is being discharged on p.o. Levaquin. Will follow up with Dr. Castillo. 2. Urinary tract infection secondary to Enterococcus bacteremia. Again will follow up with Dr. Castillo. Continue p.o. antibiotics. 3. Hepatic encephalopathy. Patient's ammonia level on the day of discharge was 74. Continue with home regimen. 4. Left knee synovitis and effusion status post arthrocentesis by Dr. Mcgarry. He removed 18 mL of clear straw-colored fluid. On gross inspection, it was completely clear. Normal joint fluid without any signs of infection or inflammation. 5. Hypertension. Continue with home regimen. 6. Anemia of chronic disease, stable. 7. Acute kidney injury, improved. 8. Alcoholic liver disease, aware. 9. Physical deconditioning. Patient has worked with Physical Therapy. 10. Sepsis secondary to left lower extremity cellulitis, resolved. HOSPITAL COURSE: Mr. 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 He had been doing well up until late last night prior to his admission when he started noticing that his left lower extremity was starting to swell and developed simultaneous pain. He was extremely lethargic on admission. His friend and sister who are at the bedside both concurred that in the afternoon, he was up walking around without any limitations. They believe that this was of sudden onset overnight. Chest x- ray in the ED showed atelectasis. Abdominal x-ray showed mild constipation. Laboratory data showed white count of 8, hemoglobin of 11 and hematocrit 32, BUN 13, creatinine 1.3. Urinalysis showed leukocytes 10-20 WBCs. No bacteria was noted. His ammonia level was 342. His lactate was 6.4. He was admitted for sepsis secondary to bilateral lower extremity cellulitis and early onset encephalopathy. He was started on the sepsis protocol. Started on IV broad- spectrum antibiotics. He was continued on his Xifaxan and lactulose. Trended his ammonia level and admitted to the ICU. Doppler studies ruled out DVT on the left. Dr. Castillo was consulted with Infectious Disease. He had an Enterobacter bacteremia as well as Enterococcus faecalis UTI and tinea pedis. At 1 point, they felt that he have a septic arthritis of the left knee. However, Dr. Mcgarry did a left knee arthrocentesis that appeared to be completely clear, normal joint fluid without any signs of infection or inflammation. Those cultures have remained negative. Repeat blood cultures as well as urine cultures are showing no growth. His ammonia level has trended down. He is appropriate for discharge home today. VITAL SIGNS: Temperature is 98.1 degrees, heart rate 87, respirations 18, blood pressure 152/77, O2 is 95% on room air. DISCHARGE DIET: Regular. DISCHARGE MEDICATIONS: As per Dr. Rader: 1. Allopurinol 100 mg p.o. at bedtime. 2. Flexeril 10 mg p.o. t.i.d. p.r.n. 3. Lasix 40 mg p.o. daily. 4. Icar C 1 each p.o. b.i.d. 5. Imdur 30 mg p.o. daily. 6. Lactulose 45 mL p.o. at 0700 hours 1400 hours and 2100 hours. 7. Levaquin 500 mg p.o. daily at 8 p.m. for 14 days. 8. Antivert 25 mg p.o. b.i.d. p.r.n. 9. Prilosec 20 mg p.o. daily. 10. Xifaxan 550 mg p.o. b.i.d. 11. Spironolactone 100 mg p.o. daily. 12. B complex 1 each p.o. daily. FOLLOWUP: Mr. Castillo. He is being discharged back home. He lives with a friend who assists him with household needs only. He does have a shower chair, 2 walkers and a cane at home with no home health. He has been instructed to take all medications as instructed. He is to follow up with Dr. Ramses Castillo on 12/19/2016 at 8:30 a.m., as well as his primary care physician, Dr. Gary Spears in 1-2 weeks. He can return to the ED for any worsening of symptoms. Dictated by WOOD Long for Joel Garcia MD Addendum: Patient seen and examined by myself. Agree with WOOD note. It reflects my assessment and plan. Patient admitted for cellulitis and hepatic encephalopathy. Patient started to respond to therapy after 24 hours feeling more alert and awake. At the time of discharge he is alert and awake and cellulitis is looking much better clinically. He will continue with antibiotics as per Dr. Castillo from [place] and follow up in 2 to 3 weeks. cc: Gary Garcia MD MTDD
== END 2016-12-05 11:54 | disposition home or self-care (01) ==
LOC: ED 03:33 → EDIPHOLD 06:33 → SUATTDRO 06:33 → ICU 14:09 → 4N 12-01 17:03
PROVIDERS: ATTEND Internal Medicine